=== PATIENT | female | born 1950 | race Caucasian/White ===

== ENCOUNTER → 2016-12-23 | Day surgery (SDC) | payer OTHER ==
[~2016-12-23] MED LIST: ACET250T3 PO; ALBU17I INH; B COTAB3 PO; CALTTAB10 PO; FISH1000 PO; IBUP600 PO; LACTATED RINGER'S 1000 ML INJ 1,000 ML ONE; LISI10TA PO; PROPOFOL 500 MG/50 ML BTL IV ONE; VITA400C70 PO
== END | disposition home or self-care (01) ==
LOC: ESDC 08:40
PROVIDERS: ATTEND Internal Medicine Gastroenterology
DX: Z12.11 Encounter for screening for malignant neoplasm of colon (principal); D12.3 Benign neoplasm of transverse colon
CPT/HCPCS: 00810; 45385; 88305; J7120